=== PATIENT | female | born 1970 | race African-American/Black ===

== ENCOUNTER 2017-04-21 13:57 | Emergency (ER) | payer OTHER ==
[~2017-04-21] VITALS: Ht 170.2 cm; Wt 127.9 kg
[~2017-04-21 13:57] MED LIST: ADVAIR 100-501 EAC1 INH; BENADRYL25 M1 PO; EPIPEN0.3 MG/0.1 IM; HCTZ PO; PREDNISONE PO
[2017-04-21 15:14] LABS: BASOPHIL# 0.1 X10e3 (0-0.3); BASOPHIL% 1.2 % (0-2.5); EOSINOPHIL# 0.1 X10e3 (0-0.7); EOSINOPHIL% 0.7 % (0.0-7.0); HEMATOCRIT 22.2 % (35.0-45.0); LYMPHOCYTE# 4.9 X10e3 (1.0-3.5); LYMPHOCYTE% 42.2 % (17.0-45.0); MEAN CELL VOLUME 52.9 FL (83-96); MEAN CORPUSCULAR HEMOGLOBIN 15.3 PG (28-34); MEAN PLATELET VOLUME 8.4 FL (6.5-11.5); MONOCYTE# 0.6 X10e3 (0-1.0); MONOCYTE% 5.1 % (3.0-12.0); NEUTROPHIL# 5.9 X10e3 (1.5-7.1); NEUTROPHIL% 50.8 % (40-75); PLATELET COUNT 540 X10e3 (140-420); RED CELL DISTRIBUTION WIDTH 21.6 % (11.0-15.5); WHITE BLOOD COUNT 11.6 X10e3 (4.0-10.5)
[2017-04-21 15:21] LABS: DIFF IND YES; HEMOGLOBIN 6.4 gm/dL (12.0-16.0)
[2017-04-21 15:29] LABS: PARTIAL THROMBOPLASTIN TIME 22.6 SECONDS (23.5-31.3); PROTHROMBIN TIME (PATIENT) 10.5 SECONDS (10.0-11.7)
[2017-04-21 15:35] LABS: ALKALINE PHOSPHATASE 54 U/L (32-92); ALT (SGPT) 12 U/L (10-40); AST (SGOT) 18 U/L (10-42); BILIRUBIN,TOTAL 0.5 mg/dL (0.2-2.0); BLOOD UREA NITROGEN 7 mg/dL (9-23); CALCIUM SERUM 8.7 mg/dL (8.4-10.2); CARBON DIOXIDE 20 mmol/L (22-31); CHLORIDE 107 mmol/L (100-111); CREATININE SERUM 1.4 mg/dL (0.6-1.4); GLOM FILT RATE Estimated 52.8 mL/min (>60); GLUCOSE FASTING 100 mg/dL (70-110); POTASSIUM 3.5 mmol/L (3.5-5.1); PROTEIN TOTAL SERUM 7.7 g/dL (6.0-8.3); SODIUM 133 mmol/L (135-145)
[2017-04-21 15:37] LABS: BILIRUBIN, DIRECT <0.1 mg/dL (0.0-0.2); BILIRUBIN,INDIRECT 0.4 mg/dL (0.0-0.9)
[2017-04-21 15:43] LABS: PLATELET ESTIMATE INCREASED (NORMAL)
[2017-04-21 15:44] LABS: TARGET CELLS MOD
[2017-04-21 15:46] LABS: ACANTHOCYTES PRESENT; BURR CELLS PRESENT
== END 2017-04-21 21:35 | disposition home or self-care (01) ==
LOC: CED 13:57
PROVIDERS: Emergency Medicine
DX: D62 Acute posthemorrhagic anemia (principal)
CPT/HCPCS: 36430; 80048; 80076; 85025; 85610; 85730; 86850; 86900; 86901; 86923; 99285; P9016